=== PATIENT | male | born 1945 | race Caucasian/White ===

== ENCOUNTER 2021-06-20 10:26 | Day surgery (SDC) | payer OTHER, MEDICARE, SELFPAY ==
[~2021-06-20] VITALS: Ht 177.8 cm; Wt 74.8 kg
[~2021-06-20 10:26] MED LIST: CEFAZOLIN SOD 1 GM in D5W 50 ML IV ONE
[2021-06-20] MEDS ORDERED: POLYMYXIN 500,000/BACIT.10,000 UNITS in NS IRR 1 L IR ONE (13:36)
[2021-06-20] MEDS ORDERED: LR 1,000 ML IV SCH (13:45)
[2021-06-20] MEDS ORDERED: ONDANSETRON HCL 4 MG/2 ML VIAL IVP PRN (13:45)
[2021-06-20] MEDS ORDERED: HYDROmorphone 1 MG/ML INJ. CARTRIDGE IVP PRN ×4 (13:45→18:30)
[2021-06-20] MEDS ORDERED: MIDAZOLAM HCL 5 MG/ML VIAL (VERSED) IV ONE (14:17)
[2021-06-20] MEDS ORDERED: DEXAMETHASONE SOD PHOSPHATE 4 MG/ML VIAL ONE (14:17)
[2021-06-20] MEDS ORDERED: DESFLURANE 15 MIN GAS INH ONE (14:17)
[2021-06-20] MEDS ORDERED: CEFAZOLIN 2 GM IVPB PREMIX 50 ML IV ONE (14:17)
[2021-06-20] MEDS ORDERED: LR 1,000 ML IV.SOLN IV ONE (14:17)
[2021-06-20] MEDS ORDERED: LIDOCAINE 2%, 20 ML MDV ONE (14:17)
[2021-06-20] MEDS ORDERED: ONDANSETRON HCL 4 MG/2 ML VIAL ONE (14:17)
[2021-06-20] MEDS ORDERED: MIDAZOLAM HCL 2 MG/2 ML VIAL (VERSED) IVP ONE (14:17)
[2021-06-20] MEDS ORDERED: PROPOFOL 200MG/ 20ML VIAL (DIPRIVAN) IV ONE (14:17)
[2021-06-20] MEDS ORDERED: fentaNYL CITRATE/PF 100 MCG/2 ML AMP ONE (14:17)
[2021-06-20] MEDS ORDERED: ROCURONIUM BROMIDE 10 MG/ML (ZEMURON) ONE (14:17)
[2021-06-20] MEDS ORDERED: SUGAMMADEX SODIUM 200 MG/2 ML VIAL IV ONE (14:17)
[2021-06-20 16:53] VITALS: BP_SYST 137
[2021-06-20] MEDS ORDERED: ACETAMINOPHEN 325 MG TABLET PO PRN (18:30)
--- NOTE | 2021-06-20 19:00 | NUR ---
Note Pt arrived to floor from PACU at 1625, drowsy and sleepy. Admission assessment completed with medical records and completed when pt was fully awake. Pt was oriented to nursing routines and procedures. Call light within reach all shift. Pt's left shoulder dressing and right suprapubic incision dressing CDI all shift. No needs noted at this time.
--- NOTE | 2021-06-20 19:30 | NUR ---
CHANGE OF SHIFT; endorsed by day shift. S/P rt. cervical lymph node biopsy and excision of left upper back mass today. no distress.
[2021-06-20 20:30] VITALS: BP_SYST 108
--- NOTE | 2021-06-20 20:30 | NUR ---
NOTES: pt. checked, awake ,alert. HOB elevated. upper back dressing dry and intact. IVF completed and IV lock on rt. hand. no complaints of pain at this time. pt. verbalized that he might have pain later and informed him the doctor ordered Tylenol but he said he does not want it, so I asked him what medication he takes for pain, pt. said he takes advil or Motrin. informed pt. will call MD for an order. VS checked. emptied urinal. call light within reach. bed alarm on. Addendum: 06/21/21 at 0104 by Gladis Stone RN late entry pt. said he takes Motrin not advil
[2021-06-20] MEDS ORDERED: IBUPROFEN 800 MG TABLET PO PRN (21:15)
[2021-06-20] MEDS ORDERED: IBUPROFEN 600 MG TABLET PO PRN (21:15)
--- NOTE | 2021-06-20 23:30 | NUR ---
NOTES: pt. called and was already upset when I came to see him, apparently he said his been waiting for his pain medication for pain he was "anticipating", but he never called to complain of pain. Attempted to clarify the misunderstanding, that MD was paged for prn pain medication order already, but medication was not brought to him because he was not yet complaining of pain. Patient got more upset and wants his questions to be answered and does not want to be interrupted, pt. said, "he does not like me and he wants to talk to the charge nurse". been trying to explain that MD ordered 2 dosages of Motrin and asking him about his pain scale but unable to tell me. charge nurse Chitra called and let her know that the pt. wants to speak to her. Charge nurse spoke to patient, patient no longer mad.
--- NOTE | 2021-06-21 00:30 | NUR ---
NOTES; charge nurse Chitra will assign pt. to nurse Burks.
--- NOTE | 2021-06-21 01:09 | NUR ---
NOTES: nurse Chitra gave pt. Motrin 600 mg. po for c/o post op pain on his upper back.
--- NOTE | 2021-06-21 02:36 | NUR ---
NOTES: endorsed to nurse Burks for continuity of care.
--- NOTE | 2021-06-21 03:00 | NUR ---
PT IS SLEEPING, COMFORTABLE. NOT DISTRESS, STABLE. CALL LIGHT WITH THE PT.
--- NOTE | 2021-06-21 06:49 | NUR ---
closing. pt is resting, comfortable. no sign of distress, stable. needs attended. will continue to monitor until sbar reporting given to am rn.
[2021-06-21 08:00] VITALS: BP_SYST 110
--- NOTE | 2021-06-21 08:00 | NUR ---
OPENING NOTES: PATIENT EATING BREAKFAST. NO S/S OF ACUTE DISTRESS NOTED. FALL, SAFETY AND ASPIRATION PRECAUTION REINFORCED. CALL LIGHT WITHIN REACH.
[2021-06-21 12:31] VITALS: BP_SYST 105
[2021-06-21 14:07] VITALS: BP_SYST 115
--- NOTE | 2021-06-21 14:30 | NUR ---
D/C Patient Patient given medication reconciliation form and D/C instructions. Exit Care provided. Patient verbalized understanding. MD discussed with patient the results and treatment provided. Ambulatory with steady gait for discharge to home. Patient in stable condition, ID band removed. IV catheter removed, intact and dressing applied, no active bleeding. Rx of given by DR. Babcock. All belongings sent with patient.
--- NOTE | 2021-06-21 14:58 | NUR ---
Nutrition Update Rigoberto Score 18 noted. Pt admitted for Basal Cell Carcinoma of skin, unspecified; Generalized Enlarged lymph Nodes Diet:Regular diet BMI: 23.7 kg/m2 RD to follow per nutrition care standards.
--- NOTE | 2021-06-21 16:21 | NUR ---
disposition 01
== END 2021-06-21 14:30 | disposition home or self-care (01) ==
LOC: SDS 10:26 → SMU 10:27 → SDS 06-21 14:30
PROVIDERS: ATTEND Colon & Rectal Surgery
DX: C44.519 Basal cell carcinoma of skin of other part of trunk (principal); R59.1 Generalized enlarged lymph nodes; Z20.822 Contact with and (suspected) exposure to COVID-19; E78.5 Hyperlipidemia, unspecified; Z88.5 Allergy status to narcotic agent; Z88.8 Allergy status to other drugs, medicaments and biological substances; Z87.891 Personal history of nicotine dependence; Z79.899 Other long term (current) drug therapy
CPT/HCPCS: 11603; 11606; 13101; 87070; 87075; 87081; 88305; 88307; 88341; 88342; C9399; J0690 ×2; J1100; J2001; J2405; J2704; J3010; J7060; J7120; U0003; J2250